=== PATIENT | female | born 1990 | race Caucasian/White ===

== ENCOUNTER 2022-12-24 18:10 | Inpatient (IN) | payer OTHER, SELFPAY ==
[2022-12-24] VITALS (13 sets, daily range): BP systolic 103–115; BP diastolic 59–72; PULSE 88–110; RESP 16; TEMP 36.8
[2022-12-24 19:43] LABS: Hematocrit 33.7 % (36.0-48.0); Hemoglobin 11.3 g/dL (12.0-16.0); Mean Corpuscular HGB Conc 33.5 g/dL (29.9-35.2); Mean Corpuscular Hemoglobin 30.6 pg (26.7-34.0); Mean Corpuscular Volume 91.3 fL (81.0-99.0); Mean Platelet Volume 10.4 fL (9.5-13.5); Platelet Count 233 10^3/uL (150-450); Red Blood Count 3.69 10^6/uL (4.20-5.40); Red Cell Distribution Width 12.6 % (11.0-15.0)
[2022-12-24] MEDS: DINOPROSTONE 10 MG VAG INSERT.ER VAGINAL (19:54)
[2022-12-24 19:59] LABS: Amphetamine Screen Urine NEGATIVE (NEGATIVE); Barbiturates Screen Urine NEGATIVE (NEGATIVE); Benzodiazepines Screen Urine NEGATIVE (NEGATIVE); Buprenorphine Screen Urine NEGATIVE (NEGATIVE); Cannabinoid Screen Urine NEGATIVE (NEGATIVE); Cocaine Screen Urine NEGATIVE (NEGATIVE); Methadone Screen Urine NEGATIVE (NEGATIVE); Methamphetamines Screen Urine NEGATIVE (NEGATIVE); Opiate Screen Urine NEGATIVE (NEGATIVE); Oxycodone Screen Urine NEGATIVE (NEGATIVE); Phencyclidine Screen Urine NEGATIVE (NEGATIVE); Tricyclic Antidepressant Urine NEGATIVE (NEGATIVE)
--- NOTE | 2022-12-24 20:09 | PM.OBHP ---
OB - H&P: HPI History of Present Illness Chief complaint: INDUCTION : 2 Para: 1 Gestational age based on last menstrual period: 39 weeks Indications for induction: other (elective ) Narrative: patient desires elective induction of labor at 39 weeks. She is GBS+ positive History of Present Dating criteria: LMP confirmed by 1st trimester US care: good care Ultrasounds: normal 1st trimester US and normal mid trimester US Medical complications OB: none Labs Blood type: O (+) positive Rubella: nonimmune (equivocal ) RPR/VDLR: nonreactive GBS status: positive HBsAG: negative Exam Constitutional Vital Signs, click to edit/add: Last Vital Signs Pulse 109 H 12/24/22 19:55 BP 111/70 12/24/22 19:55 Documenting provider has reviewed patient's vital signs: yes Common normals: no apparent distress and oriented x3 Orientation/consciousness: Yes awake, Yes oriented to person, Yes oriented to place and Yes oriented to time HENMT Common normals: normocephalic Eye Common normals: EOMs intact bilaterally Neck & C-Spine Common normals: full ROM and no lymphadenopathy Lymph Lymphatic: no lymphadenopathy noted Chest Common normals: inspection of chest normal Respiratory Common normals: normal respiratory effort Effort & inspection: able to speak in complete sentences Cardio Common normals: regular rate and regular rhythm Rate: regular rate Rhythm: regular rhythm GI Common normals: Normal to inspection, nondistended, normoactive bowel sounds present Inspection: normal to inspection Auscultation: normoactive bowel sounds Common normals: no CVA tenderness Back & Pelvis Common normals: no CVA tenderness Extremity Common normals: normal to inspection and full ROM Neuro Common normals: oriented x3 and moves all extremities Sensorium/orientation: awake, alert, oriented to person, oriented to place and oriented to time Psych Common normals: mental status grossly normal, thought process normal and cooperative Results Labs Labs: Short CBC 12/24/22 Range/Units 19:31 WBC 12.0 H (4.0-11.0) 10^3/uL Hgb 11.3 L (12.0-16.0) g/dL Hct 33.7 L (36.0-48.0) % Plt Count 233 (150-450) 10^3/uL
[2022-12-24] MEDS: ACETAMINOPHEN 500 MG TABLET 1000 MG PO (22:57)
[2022-12-25] VITALS (49 sets, daily range): BP systolic 95–142; BP diastolic 51–74; PULSE 86–139; RESP 16–20; TEMP 36.6–36.8
[2022-12-25] MEDS: 0.9 % SODIUM CHLORIDE 1,000 ML 999 ML IV (09:00)
[2022-12-25] MEDS: CEFAZOLIN SODIUM/DEXTROSE,ISO 2 GM/50 ML PIGGYBACK IV (09:19)
[2022-12-25] MEDS: OXYTOCIN/0.9 % SODIUM CHLORIDE 10 UNITS/500 ML PLAST..BAG 6 UNIT IV (09:21)
[2022-12-25] MEDS: FENTANYL CITRATE/PF 100 MCG/2 ML VIAL EPIDURAL ×2 (11:06→11:07)
[2022-12-25] MEDS: ROPIVACAINE HCL/PF 400 MG/200 ML PREMIX 10 MG EPIDURAL (11:30)
[2022-12-25] MEDS: OXYTOCIN/0.9 % SODIUM CHLORIDE 20 UNITS/1,000 ML PLAST..BAG 125 UNIT IV (12:25)
--- NOTE | 2022-12-25 12:54 | PM.OBPRCVD ---
Procedure Procedure: Intrapartal events: None Induction method: other (Cervidil ) Delivery augmentation: rupture of membranes and pitocin Delivery monitor: external FHT and external uterine Route of delivery: Episiotomy Description: none Laceration description: perineal - 2nd degree Delivery repair: Vicryl Estimated blood loss (mL): 150 Anesthesia type: Epidural Disposition: no change Delivery date: 12/25/22 Gender: female presentation: vertex (direct OP ) Placental delivery description: Spontaneous cord description: 3 Vessels heart rate - 1 minute: 100 bpm or Greater respiratory effort - 1 minute: Spontaneous/Strong Cry muscle tone - 1 minute: Active Movement reflex response - 1 minute: Prompt Response color - 1 minute: Bluish Hands or Feet total score - 1 minute: 9 heart rate - 5 minute: 100 bpm or Greater respiratory effort - 5 minute: Spontaneous/Strong Cry muscle tone - 5 minute: Active Movement reflex response - 5 minute: Prompt Response color - 5 minute: Bluish Hands or Feet total score - 5 minute: 9 Labor State Duration Labor - Stage 3 Duration: 4 minutes Total Length of Latency: 3 hours and 59 minutes
[2022-12-25] MEDS: IBUPROFEN 400 MG TABLET 800 MG PO ×2 (13:35→22:05)
--- NOTE | 2022-12-25 16:57 | PC.NURSE ---
LC into room, holding baby. States first feeding went well to fair as baby would come off breast and cry then re latch. sleeping soundly at this time. Education materials reviewed and no further questions at this time.
--- NOTE | 2022-12-25 20:11 | W.PC.ACHO ---
Registration Status: ADM IN Primary Language: Jamaican Preferred Language: Jamaican Active Medications Generic Name Dose Route Start Last Admin Trade Name Freq PRN Reason Stop Dose Admin Acetaminophen 650 mg 12/25/22 12:57 Acetaminophen 325 Mg Tablet PO Q6H PRN Mild Pain Al Hydroxide/Mg Hydroxide 2,400 mg 12/25/22 12:57 Magnesium Hydroxide 2,400 Mg/10 Ml Oral.Susp PO Q6H PRN Dyspepsia Benzocaine/Menthol 1 applic 12/25/22 12:57 Benzocaine/Menthol 85 Gram Milo Bottle TOPICAL Q2H PRN Pain Calcium Carbonate 500 mg 12/24/22 22:37 Calcium Carbonate 500 Mg (200mg Elemental) Tab Chew PO TID PRN Heartburn Carboprost Tromethamine 250 mcg 12/24/22 19:09 Carboprost Tromethamine 250 Mcg/Ml 1 Ml Vial IM 12/26/22 13:00 Q15M PRN Bleeding Diphtheria/Pertussis/Tetanus Vacc 0.5 ml 12/27/22 09:00 Adacel Diph,Pertuss(Acell),Tet Vac/Pf 0.5 Ml Adult Syringe IM 12/27/22 09:01 .ONCE ONE Docusate Sodium 100 mg 12/26/22 09:00 Docusate Sodium 100 Mg Capsule PO BID [facility] Oxytocin/Sodium Chloride 20 units in 1,000 mls @ 125 mls/hr 12/25/22 13:30 Pitocin 20 Unit/1,000 Ml-Ns IV 12/25/22 21:29 Q8H [facility] Ibuprofen 800 mg 12/25/22 14:00 12/25/22 13:35 Ibuprofen 400 Mg Tablet PO 800 mg TID TERRA Administration Measles/Mumps/Rubella Vaccine Live 0.5 ml 12/27/22 09:00 Measles,Mumps,Rubella Vacc/Pf 0.5 Ml Vial SQ 12/27/22 09:01 .ONCE ONE Methylergonovine Maleate 0.2 mg 12/24/22 19:09 Methylergonovine Maleate 0.2 Mg/Ml Ampule IM 12/26/22 13:00 ONCE PRN Uterine Contractility/Contract Methylergonovine Maleate 0.2 mg 12/24/22 19:09 Methylergonovine Maleate 0.2 Mg Tablet PO 12/26/22 13:00 Q4H PRN Uterine Contractility/Contract Misoprostol 600 mcg 12/24/22 19:09 Misoprostol 100 Mcg Tablet PO 12/26/22 13:00 ONCE PRN Uterine Bleeding Misoprostol 800 mcg 12/24/22 19:09 Misoprostol 100 Mcg Tablet SL 12/26/22 13:00 ONCE PRN Uterine Bleeding Misoprostol 1,000 mcg 12/24/22 19:09 Misoprostol 100 Mcg Tablet NH 12/26/22 13:00 ONCE PRN Uterine Bleeding Ondansetron HCl 4 mg 12/24/22 19:09 Ondansetron Pf 4 Mg/2 Ml Vial IV Q6H PRN Nausea And Vomiting Ondansetron HCl 4 mg 12/24/22 19:09 Ondansetron 4 Mg Rapdis Tablet SL Q6H PRN Nausea And Vomiting Senna 17.2 mg 12/25/22 20:00 Sennosides 8.6 Mg Tablet PO QHS PRN Constipation Simethicone 80 mg 12/25/22 12:57 Simethicone 80 Mg Tab.Chew PO QID PRN Abdominal Distention Temazepam 15 mg 12/25/22 12:57 Temazepam 15 Mg Capsule PO QHS PRN Sleep Witch Ksenia/Glycerin 1 pad 12/25/22 12:57 Glycerin/Witch Ksenia Pads TOPICAL Q2H PRN Pain Diet Category Date Time Status Regular Consistency Diet Diet 12/25/22 12:57 Active Respiratory Oxygen Delivery Method Room Air Oxygen Delivery Method Room Air Cardiology Heart Sounds Regular Renal Bladder Pattern Continent
--- NOTE | 2022-12-25 22:20 | PC.NURSE ---
pt educated on use of electric breast pump and hand pump. pt verbalizes understanding.
[2022-12-26] MEDS: IBUPROFEN 400 MG TABLET 800 MG PO ×3 (06:02→21:05)
[2022-12-26] MEDS: DOCUSATE SODIUM 100 MG CAPSULE PO (09:25)
[2022-12-26 09:30] VITALS: BP 119/78; PULSE 92; RESP 46; TEMP 36.9
[2022-12-26 15:30] VITALS: RESP 18; TEMP 36.9
[2022-12-26 15:37] VITALS: BP 103/63; PULSE 90
--- NOTE | 2022-12-26 19:20 | PC.NURSE ---
Patient visiting with visitors at this time. Denies any needs at this time.
[2022-12-27 00:04] VITALS: BP 118/68; PULSE 76; RESP 16; TEMP 36.3
[2022-12-27 00:17] VITALS: RESP 16
[2022-12-27] MEDS: IBUPROFEN 400 MG TABLET 800 MG PO (06:16)
--- NOTE | 2022-12-27 07:30 | PC.NURSE ---
Report given to Kirstie GOMES
--- NOTE | 2022-12-27 07:53 | PM.OBPN ---
OB - PN: Subj Subjective Patient comments: no complaints, pain well controlled and tolerating diet Exam Constitutional Vital Signs, click to edit/add: Last Vital Signs Temp 97.3 F L 12/27/22 00:04 Pulse 76 12/27/22 00:04 Resp 16 12/27/22 00:17 BP 118/68 12/27/22 00:04 O2 Del Method Room Air 12/27/22 00:17 GI Inspection: normal to inspection Other: Fundus firm below U Perineum - minimal bleeding Other: Perineum - minimal bleeding OB - PN: A/P Assessment and Plan (1) Vaginal delivery: Plan - Vaginal Delivery day: 2 Plan: routine care, discharge home and follow up 6 weeks Time Spent with Patient Time: Total time spent is greater than 50% in coordination of care (as documented) at patient's floor/unit and/or counseling patient: Total time spent with greater than 50% in coordination of care (as documented) at patient's floor/unit and/or counseling patient: less than 15 minutes
--- NOTE | 2022-12-27 07:57 | PM.OBDS ---
DS: Providers Provider Date of admission: 12/24/22 18:10 Primary care physician: HANDY CASTRO Admitting clinician: CARMELO FERNANDES Attending physician on admission: CARMELO FERNANDES Consults: 12/24/22 Consult to Anesthesiology Routine Consulting Provider: Balwinder Hernandez Reason for consultation: epidural placement Has provider been notified: Yes Attending physician on discharge: CARMELO FERNANDES Discharging clinician: Ena William Anticipated date of discharge: 12/27/22 DS: Diagnosis Discharge Diagnosis (1) Vaginal delivery: Plan Home F/U with OB in 6weeks OB - DS: Summary Hospital Course Hospital Course: normal care Delivery method: spontaneous vaginal delivery Gender: female Status at Discharge Functional status at discharge: independent ambulation Overall status at discharge: patient is progressing back to baseline Time Spent with Patient Time attestation: Total time spent providing and/or coordinating discharge services: Time spent: less than 30 minutes Exam Constitutional Vital Signs, click to edit/add: Last Vital Signs Temp 97.3 F L 12/27/22 00:04 Pulse 76 12/27/22 00:04 Resp 16 12/27/22 00:17 BP 118/68 12/27/22 00:04 O2 Del Method Room Air 12/27/22 00:17 Other: Fundus - firm below umbilicus Back & Pelvis Other: perineum - minimal bleeding Discharge Plan Discharge Disposition: Home, Self-Care Discharge Medications: Discontinued [id number] 1 mg tablet 1 tab PO DAILY Activity: resume usual activities as tolerated Activity Detail: nothing per vagina for 6 weeks Diet: advance to your usual diet Forms: Portal Instructions Follow Up Appointments: 6 weeks
[2022-12-27 10:29] VITALS: BP 113/72; PULSE 88
[2022-12-27] MEDS: MEASLES,MUMPS,RUBELLA VACC/PF 0.5 ML VIAL SQ (11:53)
== END 2022-12-27 12:10 | disposition home or self-care (01) | DRG 560 ==
PROVIDERS: Admitting Provider Midwife; PCP Family Medicine; Visit Provider Midwife
DX: O99.824 Streptococcus B carrier state complicating childbirth (principal); O70.1 Second degree perineal laceration during delivery; Z3A.39 39 weeks gestation of pregnancy; Z37.0 Single live birth; Z23 Encounter for immunization
CPT/HCPCS: 36415; 59050; 59410; 80307; 85027; 86850; 86900; 86901; 90471; 90707; 96365; 96375; 96376

== ENCOUNTER 2022-12-30 08:20 | Outpatient (OUT) | payer OTHER, SELFPAY ==
--- NOTE | 2022-12-30 16:47 | PC.NURSE ---
Arrive for follow up visit. Both parents remark that family adjusting well to new baby at home. is improving and latching is better every day. Mom reports sore nipples getting better also Parents states has stool with nearly every feeding and wets as well. Feeds every 2-3 hours, waking self when hungry. To breast with poor positioning, baby with nose pressed into breast. Positioning assistance offered, asymmetrical latch achieved and immediate improvement of swallowing and comfort. Active nursing for 20 min. Mom exclaims how well she is doing and no nipple pain felt. Nipple rounded at end of feed where usually has a crease across tip. No further questions at this time, aware of [facility] group and to call as needed.
[2022-12-30 16:48] VITALS: BP 124/85; PULSE 77; RESP 16; TEMP 36.8; O2SAT 97
== END 2022-12-30 16:30 | disposition home or self-care (01) ==
LOC: FBCO 08:25
PROVIDERS: PCP Family Medicine; Visit Provider Midwife
DX: Z39.2 Encounter for routine postpartum follow-up (principal)